=== PATIENT | male | born 1990 | race Asian ===

== ENCOUNTER 2023-03-21 16:57 | Emergency (ER) | payer OTHER ==
[~2023-03-21] VITALS: Ht 167.6 cm; Wt 69.9 kg
[2023-03-21 17:27] VITALS: BP_SYST 115; PULSE 55; RESP 16; TEMP 98; O2SAT 100
[2023-03-21] MEDS ORDERED: IBUP-1971 PO (18:59)
[2023-03-21] MEDS ORDERED: DICL20GE TP (18:59)
[2023-03-21] MEDS ORDERED: CEPH-548 PO (18:59)
[2023-03-21 19:10] VITALS: BP_SYST 115; PULSE 55; RESP 16; TEMP 98; O2SAT 100
== END 2023-03-21 19:11 | disposition home or self-care (01) ==
LOC: SED 16:57
DX: S10.86XA Insect bite of other specified part of neck, initial encounter (principal); Z79.899 Other long term (current) drug therapy; W57.XXXA Bitten or stung by nonvenomous insect and other nonvenomous arthropods, initial encounter; Y93.89 Activity, other specified; Y92.89 Other specified places as the place of occurrence of the external cause; Y99.8 Other external cause status
CPT/HCPCS: 99283